=== PATIENT | male | born 1980 | race Caucasian/White ===

== ENCOUNTER 2016-10-08 19:02 | Emergency (ER) | payer SELFPAY ==
[~2016-10-08] VITALS: Ht 185.4 cm; Wt 74.8 kg
--- NOTE | 2016-10-08 19:26 | NUR ---
TO BED 1 AMBULATORY C/O RUQ ABDOMINAL PAIN X2 WEEK DENIES N/V/D. PT AAOX4 NO ACUTE DISTRESS NOTED, RESP EVEN AND UNLABORED. URINE SAMPLE COLLECTED. PENDING ER MD VILLAFANA.
--- NOTE | 2016-10-08 19:29 | NUR ---
SPIKE LOOMIS AT BEDSIDE TO LEDY JURADO.
[2016-10-08] MEDS ORDERED: PANTOPRAZOLE 40 MG VIAL IV ONE (20:00)
[2016-10-08] MEDS ORDERED: MORPHINE SULFATE INJ 2 MG/ML DISP.SYRIN IV ONE (20:00)
[2016-10-08] MEDS ORDERED: IV NS 0.9% 1,000 ML BAG IV ONE (20:00)
[2016-10-08] MEDS ORDERED: ONDANSETRON HCL/PF 4 MG/2 ML VIAL IVP ONE (20:00)
[2016-10-08] MEDS ORDERED: IV SET PRIMARY 1 EA INFUS.SET MC ONE (20:01)
[2016-10-08] MEDS ORDERED: ONDANSETRON HCL/PF 4 MG/2 ML VIAL ONE (20:01)
[2016-10-08] MEDS ORDERED: MORPHINE SULFATE INJ 4 MG/ML DISP.SYRIN ONE (20:01)
[2016-10-08] MEDS ORDERED: IV NS 0.9% 1,000 ML ONE (20:01)
[2016-10-08] MEDS ORDERED: PANTOPRAZOLE 40 MG VIAL ONE (20:01)
[2016-10-08 20:06] LABS: BASOPHILS # (AUTO) 0.1 /CMM (0.0-0.2); BASOPHILS % (AUTO) 0.7 % (0.0-2.0); EOSINOPHILS # (AUTO) 0.1 /CMM (0.0-0.7); EOSINOPHILS % (AUTO) 0.9 % (0.0-6.0); HEMATOCRIT 45 % (39-51); LYMPHOCYTES # (AUTO) 3.5 /CMM (0.8-4.8); LYMPHOCYTES % (AUTO) 36.9 % (20.0-44.0); MEAN CORPUSCULAR HEMOGLOBIN 30 PG (26.0-33.0); MEAN CORPUSCULAR HGB CONC 34 g/dl (31.0-36.0); MEAN CORPUSCULAR VOLUME 90 fL (80-96); MONOCYTES # (AUTO) 0.5 /CMM (0.1-1.30); MONOCYTES % (AUTO) 5.7 % (2.0-12.0); NEUTROPHILS # (AUTO) 5.3 /CMM (1.8-8.9); NEUTROPHILS % (AUTO) 55.8 % (43.0-81.0); PLATELET COUNT (AUTO) 198 /CMM (150-450); RED BLOOD CELL COUNT(AUTO) 4.98 MIL/uL (4.5-6.0); WHITE BLOOD COUNT (AUTO) 9.5 K/uL (4.3-11.0)
[2016-10-08 20:08] LABS: APPEARANCE,URINE Clear (CLEAR); BILIRUBIN,URINE Negative (NEGATIVE); BLOOD, URINE Negative Ery/uL (NEGATIVE); COLOR,URINE Yellow (YELLOW); KETONES,URINE Negative (NEGATIVE); LEUKOCYTE ESTERASE ,URINE Negative (NEGATIVE); NITRITE, URINE Negative (NEGATIVE); PH,URINE 5.5 (5.0-8.0); PROTEIN,URINE Negative (NEGATIVE); UGLUCOSE Negative (NEGATIVE); UROBILINOGEN,URINE 0.2 EU/dL (0.2)
--- NOTE | 2016-10-08 20:09 | NUR ---
PT TRANSPORTED TO RADIOLOGY FOR CT ABD/PELVIS.
[2016-10-08 20:13] LABS: CALCIUM, SERUM 8.4 mg/dL (8.5-10.1); POTASSIUM 3.8 mmol/L (3.5-5.1)
--- NOTE | 2016-10-08 20:16 | NUR ---
PT BACK FROM RADIOLOGY. PENDING CT ABD/PELVIS RESULT.
[2016-10-08 20:18] LABS: ALBUMIN 3.9 g/dL (3.4-5.0); BILIRUBIN,DIRECT 0.1 mg/dL (0.0-0.2); BILIRUBIN,TOTAL 0.4 mg/dL (0.2-1.0); TOTAL PROTEIN, SERUM 6.3 g/dL (6.4-8.2)
--- NOTE | 2016-10-08 20:46 | NUR ---
LAB AND CT RESULT RECEIVED. ER MD MADE AWARE. PAIN WITHIN ACCEPTABLE LEVEL TO PT AT THIS TIME 08/15. PENDING DISPOSITION.
--- NOTE | 2016-10-08 20:53 | NUR ---
COY TECH AT BEDSIDE FOR GALLBLADDER COY.
--- NOTE | 2016-10-08 21:39 | NUR ---
IV removed. Catheter intact and site benign. Pressure and 4x4 applied to site. No bleeding noted. Patient discharged to home in stable condition. Written and verbal after care instructions given. Patient verbalizes understanding of instruction. ambulatory with a steady gait noted. pt aaox4 no acute distress noted, resp even and unlabored. pain within acceptable level to pt 2/10.
[2016-10-08 21:40] VITALS: BP 124/68
== END 2016-10-08 21:41 | disposition home or self-care (01) ==
LOC: ER 19:03
DX: R10.31 Right lower quadrant pain (principal); F17.200 Nicotine dependence, unspecified, uncomplicated; Z88.0 Allergy status to penicillin; Z90.89 Acquired absence of other organs
CPT/HCPCS: 36415; 74176; 76705; 80048; 80076; 81001; 83690; 85025; 96360; 99285; A4606; C9113; J2270; J2405; J7030; Z7610; 81000-TC

== ENCOUNTER 2019-05-10 18:19 | Emergency (ER) | payer SELFPAY ==
[~2019-05-10] VITALS: Ht 185.4 cm; Wt 72.6 kg
--- NOTE | 2019-05-10 18:34 | NUR ---
PT BIB SELF C/O R KNEE PAIN AND SWELLING STARTED YESTERDAY, DENIES INJURY/TRAUMA, PT IS AAOX3, NOT IN RESPIRAOTRY DISTRESS, HOOKED TO MONITOR, KEPT RESTED AND COMFORTABLE, WILL CONTINUE TO MONITOR.
--- NOTE | 2019-05-10 18:44 | NUR ---
FOSTER PA AT BEDSIDE FOR EVAL.
--- NOTE | 2019-05-10 18:53 | NUR ---
FLAT DRIER AT BEDSIDE FOR XRAY.
--- NOTE | 2019-05-10 19:09 | NUR ---
REPORT GIVEN TO AUGUST FINK FOR ANTWON
--- NOTE | 2019-05-10 19:19 | NUR ---
FIELD MANAGER AT BEDSIDE FOR BLOOD COLLECTION.
[2019-05-10 19:28] LABS: BASOPHILS # (AUTO) 0.1 /CMM (0.0-0.2); BASOPHILS % (AUTO) 0.9 % (0.0-2.0); EOSINOPHILS % (AUTO) 0.2 % (0.0-6.0); HEMATOCRIT 42 % (39-51); HEMOGLOBIN 14.5 g/dL (13.5-17.5); LYMPHOCYTES # (AUTO) 2.7 /CMM (0.8-4.8); LYMPHOCYTES % (AUTO) 21.3 % (20.0-44.0); MEAN CORPUSCULAR HGB CONC 34 g/dl (31.0-36.0); MEAN CORPUSCULAR VOLUME 91 fL (80-96); MONOCYTES # (AUTO) 1.6 /CMM (0.1-1.30); MONOCYTES % (AUTO) 12.7 % (2.0-12.0); NEUTROPHILS # (AUTO) 8.2 /CMM (1.8-8.9); NEUTROPHILS % (AUTO) 64.9 % (43.0-81.0); PLATELET COUNT (AUTO) 228 /CMM (150-450); RED BLOOD CELL COUNT(AUTO) 4.64 MIL/uL (4.5-6.0); WHITE BLOOD COUNT (AUTO) 12.6 K/uL (4.3-11.0)
[2019-05-10] MEDS ORDERED: LIDOCAINE 2% 20 ML MDV ONE (19:59)
[2019-05-10] MEDS ORDERED: LIDOCAINE 2% 20 ML MDV TP ONE (20:00)
--- NOTE | 2019-05-10 20:29 | NUR ---
RADHA Syed is at the bedside speaking to the pt.
--- NOTE | 2019-05-10 20:34 | NUR ---
Dr Perkins is at the bedside speaking to the pt.
--- NOTE | 2019-05-10 20:35 | NUR ---
wound care is in progress. Pt to receive a knee immobilizer. Pt has crutches.
--- NOTE | 2019-05-10 21:04 | NUR ---
Patient discharged to home in stable condition. Written and verbal after care instructions given. Patient verbalizes understanding of instruction and RX. Pt ambulatory using crutches, pt brought his own crutches and showed proper use.
--- NOTE | 2019-05-10 21:04 | NUR ---
Note kelechi in ED - 05/10/19 at 2112 by NANCY Patient discharged to home in stable condition. Written and verbal after care instructions given. Patient verbalizes understanding of instruction. Pt ambulatory using crutches.
[2019-05-10 21:06] VITALS: BP 126/76
== END 2019-05-10 21:00 | disposition home or self-care (01) ==
LOC: ER 18:19
DX: M25.461 Effusion, right knee (principal); F17.200 Nicotine dependence, unspecified, uncomplicated; Z90.89 Acquired absence of other organs; Z88.0 Allergy status to penicillin
CPT/HCPCS: 20610; 29505; 36415; 73564; 85025; 85652; 86140; 87070; 89051; 89060; 99284; J3490